=== PATIENT | female | born 1990 | race Caucasian/White ===

== ENCOUNTER 2016-10-20 18:54 | Emergency (ER) | payer OTHER | END 2016-10-21 01:13 | disposition home or self-care (01) | LOC: FER 18:54 | DX: S93.401A Sprain of unspecified ligament of right ankle, initial encounter (principal); W06.XXXA Fall from bed, initial encounter; Y92.009 Unspecified place in unspecified non-institutional (private) residence as the place of occurrence of the external cause | CPT/HCPCS: 73610; 73630 ==